=== PATIENT | male | born 1965 | race Caucasian/White ===

== ENCOUNTER → 2022-01-27 | Outpatient (CLI) | payer BC ==
[~2022-01-27] MED LIST: HYDR-3715 PO; KEFL500C17 OR; METF500T13 PO; MULTCAP PO; lantus insulin SQ
== END ==
LOC: M SOG 14:49
PROVIDERS: ATTEND Orthopaedic Surgery Hand Surgery
DX: M79.642 Pain in left hand (principal)

== ENCOUNTER → 2022-07-10 | Outpatient (CLI) | payer OTHER | LOC: M WUC 13:24 | DX: M25.562 Pain in left knee (principal); M25.78 Osteophyte, vertebrae; M51.36 Other intervertebral disc degeneration, lumbar region; M51.37 Other intervertebral disc degeneration, lumbosacral region ==

== ENCOUNTER 2022-10-08 14:43 | Inpatient (IN) | payer BC, OTHER ==
[~2022-10-08] VITALS: Ht 180.3 cm; Wt 79.2 kg
[2022-10-08] MEDS ORDERED: KETOROLAC 30 MG/ML 1ML VIAL IV ONE (15:30)
[2022-10-08] MEDS ORDERED: NS 1,000 ML IV ONE (15:30)
[2022-10-08] MEDS ORDERED: ONDANSETRON 4MG 2ML VIAL IV ONE (15:30)
[2022-10-08 16:22] LABS: BASO % 0.2 % (0.0-1.0); EOS # 0.1 10^3/uL (0.0-0.5); HEMATOCRIT 40.6 % (42.0-52.0); HEMOGLOBIN 13.6 g/dl (13.5-17.5); LYMPH # 1.5 10^3/uL (1.5-5.0); LYMPH % 13.3 % (24.0-44.0); MEAN CORPUSCULAR HEMOGLOBIN 29.2 pg (27.0-33.0); MEAN CORPUSCULAR HGB CONC 33.5 g/dl (32.0-36.5); MEAN CORPUSCULAR VOLUME 87.1 fl (80.0-96.0); MONO # 1.1 10^3/uL (0.0-0.8); MONO % 9.9 % (2.0-8.0); NEUTROPHILS # 8.7 10^3/uL (1.5-8.5); NEUTROPHILS % 75.3 % (36.0-66.0); PLATELET COUNT, AUTOMATED 228 10^3/uL (150-450); RED BLOOD COUNT 4.66 10^6/uL (4.30-6.10); WHITE BLOOD COUNT 11.6 10^3/uL (4.0-10.0)
[2022-10-08 16:44] LABS: APPEARANCE, URINE MANUAL CLEAR (CLEAR); COLOR, URINE MANUAL YELLOW (YELLOW)
[2022-10-08 16:45] LABS: BILIRUBIN, URINE MANUAL NEGATIVE (NEGATIVE); BLOOD URINE MANUAL NEGATIVE (NEGATIVE); GLUCOSE, URINE (UA) MANUAL 4+(1000 MG/DL) mg/dL (NEGATIVE); KETONE, URINE MANUAL 2+ mg/dL (NEGATIVE); LEUKOCYTE ESTERASE, URINE MAN NEGATIVE (NEGATIVE); NITRITE, URINE MANUAL NEGATIVE (NEGATIVE); PROTEIN, URINE MANUAL NEGATIVE (NEGATIVE); UROBILINOGEN, URINE MANUAL NORMAL (NORMAL)
[2022-10-08 17:03] LABS: LIPASE 117 U/L (12-53)
[2022-10-08 17:05] LABS: ALBUMIN 3.7 G/DL (3.2-5.2); ALKALINE PHOSPHATASE 74 U/L (46-116); ALT/SGPT 12 U/L (7.0-40); AST/SGOT 14 U/L (<34); BILIRUBIN,DIRECT 0.7 MG/DL (<0.4); BILIRUBIN,TOTAL 2.2 MG/DL (0.3-1.2); BLOOD UREA NITROGEN 9 MG/DL (9-23); CALCIUM LEVEL 8.9 MG/DL (8.5-10.1); CARBON DIOXIDE LEVEL 25 MMOL/L (20-31); CHLORIDE LEVEL 101 MMOL/L (98-107); CREATININE FOR GFR 0.56 MG/DL (0.70-1.30); GLOMERULAR FILTRATION RATE > 60.0 (>56); GLUCOSE, FASTING 86 MG/DL (60-100); POTASSIUM SERUM 3.8 MMOL/L (3.5-5.1); SODIUM LEVEL 140 MMOL/L (136-145); TOTAL PROTEIN 6.7 G/DL (5.7-8.2)
[2022-10-08] MEDS: INSULIN LISPRO (NovoLOG) PER UNIT SC SCH (18:00)
[2022-10-08] MEDS ORDERED: metroNIDAZOLE 500 MG in IV 1 EA IV ONE (18:05)
[2022-10-08] MEDS ORDERED: cefTRIAXone SOD 1 GM in D5W MINI-BAG PLUS 50 ML IV ONE (18:05)
[2022-10-08] MEDS ORDERED: PIPERACILLIN/TAZOBACTAM SOD 4.5 GM in D5W MINI-BAG PLUS 50 ML IV ONE (18:20)
[2022-10-08] MEDS: NS 1,000 ML IV SCH ×2 (18:35→23:44)
[2022-10-08] MEDS ORDERED: GLUCAGON INJ 1MG VIAL SC PRN (18:35)
[2022-10-08] MEDS ORDERED: GLUCOSE 4GM CHEW TABLET PO PRN (18:35)
[2022-10-08] MEDS ORDERED: KETOROLAC 30 MG/ML 1ML VIAL IV PRN (18:35)
[2022-10-08] MEDS ORDERED: DEXTROSE 50% 50ML SYRINGE IV PRN (18:35)
[2022-10-08] MEDS ORDERED: MORPHINE 2 MG/ML 1ML VIAL IV PRN (18:35)
[2022-10-08] MEDS ORDERED: CINN500C2 PO (19:52)
[2022-10-08] MEDS ORDERED: AMLO1TAB24 PO (19:52)
[2022-10-08] MEDS ORDERED: JARD1TAB PO (19:52)
[2022-10-08] MEDS ORDERED: IRON65TA2 PO (19:52)
[2022-10-08] MEDS ORDERED: METF10004 PO (19:52)
[2022-10-08] MEDS ORDERED: B-COTAB10 PO (19:52)
[2022-10-08] MEDS ORDERED: VITMTA PO (19:52)
[2022-10-08] MEDS ORDERED: PIOG1TAB37 PO (19:52)
[2022-10-08] MEDS ORDERED: TURM500C PO (19:52)
[2022-10-08] MEDS ORDERED: GNP99TAB3 PO (19:52)
[2022-10-08] MEDS ORDERED: C 50TAB PO (19:52)
[2022-10-08] MEDS ORDERED: D-40TAB2 PO (19:52)
[2022-10-08] MEDS ORDERED: HYDR12.55 PO (19:52)
[2022-10-08] MEDS ORDERED: HOME MED LIST COMPLETE! XX SCH (19:55)
[2022-10-08] MEDS ORDERED: ASCORBIC ACID 500 MG TAB PO SCH (21:00)
[2022-10-08] MEDS ORDERED: FERROUS SULFATE 325MG TAB PO SCH (21:00)
[2022-10-08 23:45] VITALS: BP 126/73
[2022-10-09] VITALS (9 sets, daily range): BP systolic 101–142; BP diastolic 58–82
[2022-10-09] MEDS: D5W/0.9% SODIUM CHLORIDE 1,000 ML IV SCH ×2 (00:38→12:56)
[2022-10-09] MEDS: PIPERACILLIN/TAZOBACTAM SOD 3.375 GM in D5W MINI-BAG PLUS 50 ML IV SCH ×4 (00:38→18:18)
[2022-10-09] MEDS: INSULIN LISPRO (NovoLOG) PER UNIT SC SCH ×4 (05:59→18:18)
[2022-10-09 06:31] LABS: MAGNESIUM LEVEL 1.8 MG/DL (1.8-2.4)
[2022-10-09 06:35] LABS: HEMATOCRIT 34.5 % (42.0-52.0); HEMOGLOBIN 11.7 g/dl (13.5-17.5); MEAN CORPUSCULAR HEMOGLOBIN 29.8 pg (27.0-33.0); MEAN CORPUSCULAR HGB CONC 33.9 g/dl (32.0-36.5); MEAN CORPUSCULAR VOLUME 87.8 fl (80.0-96.0); PLATELET COUNT, AUTOMATED 204 10^3/uL (150-450); RED BLOOD COUNT 3.93 10^6/uL (4.30-6.10); WHITE BLOOD COUNT 6.9 10^3/uL (4.0-10.0)
[2022-10-09 06:41] LABS: ALKALINE PHOSPHATASE 62 U/L (46-116); ALT/SGPT 10 U/L (7.0-40); AST/SGOT 10 U/L (<34); BILIRUBIN,TOTAL 1.7 MG/DL (0.3-1.2); BLOOD UREA NITROGEN 13 MG/DL (9-23); CARBON DIOXIDE LEVEL 24 MMOL/L (20-31); CHLORIDE LEVEL 103 MMOL/L (98-107); CREATININE FOR GFR 0.73 MG/DL (0.70-1.30); GLOMERULAR FILTRATION RATE > 60.0 (>56); GLUCOSE, FASTING 83 MG/DL (60-100); POTASSIUM SERUM 3.6 MMOL/L (3.5-5.1); SODIUM LEVEL 140 MMOL/L (136-145); TOTAL PROTEIN 5.6 G/DL (5.7-8.2)
[2022-10-09 06:59] LABS: INR 1.19; PROTHROMBIN TIME 15.4 SECONDS (12.5-14.5)
[2022-10-09] MEDS ORDERED: MIDAZOLAM INJ 2MG/2ML VIAL (J2250 PER 1MG) As Ordered ONE (07:17)
[2022-10-09] MEDS ORDERED: KETOROLAC 60MG 2ML VIAL As Ordered ONE (07:17)
[2022-10-09] MEDS ORDERED: ONDANSETRON 4MG 2ML VIAL As Ordered ONE (07:17)
[2022-10-09] MEDS ORDERED: LIDOCAINE 2% 100MG/5ML SDV (FOR ANES.) As Ordered ONE (07:17)
[2022-10-09] MEDS ORDERED: fentaNYL 250 MCG/5 ML INJECTION As Ordered ONE (07:17)
[2022-10-09] MEDS ORDERED: ROCURONIUM BROMIDE 50MG/5ML VIAL As Ordered ONE ×2 (07:18→09:05)
[2022-10-09] MEDS ORDERED: propofoL 200 MG/20 ML VIAL As Ordered ONE (07:18)
[2022-10-09] MEDS ORDERED: ACETAMINOPHEN 1000MG 100ML IV BAG As Ordered ONE (07:18)
[2022-10-09] MEDS ORDERED: BUPIVACAINE/EPIN 0.25% 30ML VIAL As Ordered ONE (07:30)
[2022-10-09] MEDS ORDERED: KETAMINE HCL 200MG/20ML VIAL As Ordered ONE (08:09)
[2022-10-09] MEDS ORDERED: ZOSYN 3.375GM VIAL As Ordered ONE (08:13)
[2022-10-09] MEDS: amLODIPine 5 MG TAB PO SCH (08:14)
[2022-10-09] MEDS ORDERED: ePHEDrine SULFATE 25 MG/5 ML(5MG/ML) SYRINGE As Ordered ONE (08:33)
[2022-10-09] MEDS ORDERED: GLYCOPYRROLATE INJ 0.2 MG/ML 2 ML VIAL As Ordered ONE (08:34)
[2022-10-09] MEDS ORDERED: ESMOLOL INJ 100MG/10ML VIAL As Ordered ONE (08:49)
[2022-10-09] MEDS ORDERED: SUGAMMADEX SODIUM 500 MG/5 ML VIAL (BRIDION) As Ordered ONE (08:51)
[2022-10-09] MEDS ORDERED: VITAMIN D (CHOLECALCIFEROL) 400 INTERNATIONAL UNITS TAB PO SCH (09:00)
[2022-10-09] MEDS ORDERED: MULTIVITAMINS/MINERALS THERAP 1 TAB PO SCH (09:00)
[2022-10-09] MEDS ORDERED: hydroCHLOROthiazide 12.5 MG CAPSULE PO SCH (09:00)
[2022-10-09] MEDS ORDERED: LR 1,000 ML IV SCH (10:40)
[2022-10-09] MEDS ORDERED: ONDANSETRON 4MG 2ML VIAL IV PRN (10:40)
[2022-10-09] MEDS: oxyCODONE 5MG TAB PO PRN ×2 (11:02→11:40)
[2022-10-09] MEDS: ONDANSETRON 4MG 2ML VIAL IV PRN ×2 (11:03→17:31)
[2022-10-09] MEDS: HYDROMORPHONE HCL 0.5 MG/ 0.5 ML SYRINGE (J1170 PER 1) IV PRN ×4 (11:03→11:19)
[2022-10-09] MEDS: KETOROLAC 30 MG/ML 1ML VIAL IV SCH ×2 (11:16→17:31)
[2022-10-09] MEDS ORDERED: INSULIN LISPRO (NovoLOG) PER UNIT SC SCH (21:00)
[2022-10-10] MEDS: PIPERACILLIN/TAZOBACTAM SOD 3.375 GM in D5W MINI-BAG PLUS 50 ML IV SCH ×2 (00:32→06:06)
[2022-10-10] MEDS: KETOROLAC 30 MG/ML 1ML VIAL IV SCH ×2 (00:33→06:06)
[2022-10-10 01:00] VITALS: BP 116/68
[2022-10-10] MEDS: D5W/0.9% SODIUM CHLORIDE 1,000 ML IV SCH (02:39)
[2022-10-10 05:00] VITALS: BP 112/68
[2022-10-10 06:14] LABS: BASO % 0.1 % (0.0-1.0); HEMATOCRIT 34.6 % (42.0-52.0); HEMOGLOBIN 11.9 g/dl (13.5-17.5); LYMPH % 9.3 % (24.0-44.0); MEAN CORPUSCULAR HGB CONC 34.4 g/dl (32.0-36.5); MEAN CORPUSCULAR VOLUME 87.2 fl (80.0-96.0); MONO # 0.7 10^3/uL (0.0-0.8); MONO % 6.9 % (2.0-8.0); NEUTROPHILS # 8.7 10^3/uL (1.5-8.5); NEUTROPHILS % 83.2 % (36.0-66.0); PLATELET COUNT, AUTOMATED 221 10^3/uL (150-450); RED BLOOD COUNT 3.97 10^6/uL (4.30-6.10); WHITE BLOOD COUNT 10.4 10^3/uL (4.0-10.0)
[2022-10-10 06:53] LABS: BLOOD UREA NITROGEN 17 MG/DL (9-23); CALCIUM LEVEL 8.3 MG/DL (8.5-10.1); CARBON DIOXIDE LEVEL 19 MMOL/L (20-31); CHLORIDE LEVEL 104 MMOL/L (98-107); CREATININE FOR GFR 0.66 MG/DL (0.70-1.30); GLOMERULAR FILTRATION RATE > 60.0 (>56); GLUCOSE, FASTING 162 MG/DL (60-100); POTASSIUM SERUM 4.1 MMOL/L (3.5-5.1); SODIUM LEVEL 139 MMOL/L (136-145)
[2022-10-10] MEDS ORDERED: INSULIN LISPRO (NovoLOG) PER UNIT SC SCH (07:30)
[2022-10-10 08:13] VITALS: BP 141/79
[2022-10-10] MEDS: amLODIPine 5 MG TAB PO SCH (08:13)
[2022-10-10] MEDS ORDERED: OXYC-517 PO (08:17)
[2022-10-10] MEDS ORDERED: AMOX875T2 PO (08:17)
[2022-10-10] MEDS ORDERED: ACET-897 PO (08:17)
[2022-10-10 10:00] VITALS: BP 138/76
== END 2022-10-10 11:22 | disposition home or self-care (01) | DRG 263 ==
LOC: M ED 14:43 → M ED INP 18:32 → ENRESERV 20:28 → M MSPAV 23:38
PROVIDERS: ADMIT Family Medicine; ATTEND Internal Medicine Nephrology
PROC: 8E0W4CZ Robotic Assisted Procedure of Trunk Region, Percutaneous Endoscopic Approach (ICD-10-PCS; 2022-10-09)
PROC: 0FT44ZZ Resection of Gallbladder, Percutaneous Endoscopic Approach (ICD-10-PCS; principal; 2022-10-09 09:00)
DX: K81.0 Acute cholecystitis (principal); E11.319 Type 2 diabetes mellitus with unspecified diabetic retinopathy without macular edema; I10 Essential (primary) hypertension; Z98.84 Bariatric surgery status; Z79.2 Long term (current) use of antibiotics; Z79.4 Long term (current) use of insulin; Z87.891 Personal history of nicotine dependence; D72.829 Elevated white blood cell count, unspecified; R01.1 Cardiac murmur, unspecified; Z86.718 Personal history of other venous thrombosis and embolism; I09.9 Rheumatic heart disease, unspecified

== ENCOUNTER 2023-04-02 08:44 | Day surgery (SDC) | payer BC, OTHER ==
[~2023-04-02] VITALS: Ht 180.3 cm; Wt 77.5 kg
[~2023-04-02 08:44] MED LIST changes: +ACET-897 PO; +AMLO1TAB24 PO; +AMOX875T2 PO; +B-COTAB10 PO; +C 50TAB PO; +CINN500C2 PO; +D-40TAB2 PO; +GNP99TAB3 PO; +HYDR12.55 PO; +IRON65TA2 PO; +JARD1TAB PO; +JARD1TAB3 PO; +METF10004 PO; +OXYC-517 PO; +PIOG1TAB37 PO; +TURM500C PO; +VITMTA PO
[2023-04-02] MEDS ORDERED: LR 1,000 ML IV SCH ×2 (09:10→11:50)
[2023-04-02] MEDS ORDERED: propofoL 200 MG/20 ML VIAL As Ordered ONE ×2 (09:34→10:49)
[2023-04-02] MEDS ORDERED: LIDOCAINE 2% 100MG/5ML SDV (FOR ANES.) As Ordered ONE (09:35)
[2023-04-02] MEDS ORDERED: ONDANSETRON 4MG 2ML VIAL As Ordered ONE (09:38)
[2023-04-02] MEDS ORDERED: MIDAZOLAM INJ 2MG/2ML VIAL As Ordered ONE (09:38)
[2023-04-02] MEDS ORDERED: ACETAMINOPHEN 1000MG 100ML IV BAG As Ordered ONE (09:39)
[2023-04-02] MEDS ORDERED: BUPIVACAINE HCL 0.25% 30ML VIAL As Ordered ONE (09:55)
[2023-04-02] MEDS ORDERED: ceFAZolin SOD 2 GM in IV 1 EA IV ONE (10:10)
[2023-04-02] MEDS ORDERED: KETOROLAC 60MG 2ML VIAL As Ordered ONE (10:21)
[2023-04-02] MEDS ORDERED: PHENYLephrine 500MCG 5ML (100MCG/ML) SYRINGE As Ordered ONE (10:31)
[2023-04-02] MEDS ORDERED: ceFAZolin 2 GM/D5W 50 ML IV BAG As Ordered ONE (10:31)
[2023-04-02] MEDS ORDERED: METOCLOPRAMIDE INJ 10MG/2ML VIAL As Ordered ONE (11:11)
[2023-04-02] MEDS ORDERED: ONDANSETRON 4MG 2ML VIAL IV PRN (11:50)
[2023-04-02] MEDS ORDERED: PERC5TAB12 PO (11:54)
[2023-04-02] MEDS: oxyCODONE 5MG TAB PO PRN ×2 (12:00→12:30)
[2023-04-02 13:00] VITALS: BP 153/85; TEMP 98.3; O2SAT 97
== END 2023-04-02 13:33 | disposition home or self-care (01) ==
LOC: M SDC 08:44
PROVIDERS: ATTEND Orthopaedic Surgery Hand Surgery
DX: M72.0 Palmar fascial fibromatosis [Dupuytren] (principal); E11.9 Type 2 diabetes mellitus without complications; Z98.84 Bariatric surgery status; I10 Essential (primary) hypertension; Z87.891 Personal history of nicotine dependence; Z88.5 Allergy status to narcotic agent; Z88.4 Allergy status to anesthetic agent; Z88.8 Allergy status to other drugs, medicaments and biological substances; Z79.899 Other long term (current) drug therapy; Z79.84 Long term (current) use of oral hypoglycemic drugs
CPT/HCPCS: 26045; 26123; 88304; J0131; J0690; J1100; J1885; J2250; J2370; J2405; J2765

== ENCOUNTER 2024-01-14 12:15 | Day surgery (SDC) | payer OTHER ==
[~2024-01-14] VITALS: Ht 180.3 cm; Wt 78.1 kg
[~2024-01-14 12:15] MED LIST changes: +CHOL4PKT PO; +PERC5TAB12 PO; +SUPETAB44 PO; +THERTAB52 PO
[2024-01-14] MEDS: NS 1,000 ML IV ONE (12:36)
[2024-01-14 14:54] VITALS: BP 119/72; TEMP 96.1; O2SAT 98
== END 2024-01-14 14:57 | disposition home or self-care (01) ==
LOC: M OPP 12:15
PROVIDERS: ATTEND Internal Medicine Gastroenterology
DX: K57.30 Diverticulosis of large intestine without perforation or abscess without bleeding (principal); K64.4 Residual hemorrhoidal skin tags; K64.8 Other hemorrhoids; R19.5 Other fecal abnormalities; E11.9 Type 2 diabetes mellitus without complications; Z98.84 Bariatric surgery status; Z79.84 Long term (current) use of oral hypoglycemic drugs; Z79.899 Other long term (current) drug therapy; Z88.5 Allergy status to narcotic agent; Z88.8 Allergy status to other drugs, medicaments and biological substances

== ENCOUNTER → 2024-04-21 | Outpatient (CLI) | payer OTHER | LOC: M WUC 14:35 | PROVIDERS: ATTEND Nurse Practitioner Family | DX: R07.82 Intercostal pain (principal) ==

== ENCOUNTER → 2024-05-29 | Outpatient (CLI) | payer OTHER | LOC: M RAD 08:41 | PROVIDERS: ATTEND Internal Medicine Pulmonary Disease | DX: R91.8 Other nonspecific abnormal finding of lung field (principal); I25.89 Other forms of chronic ischemic heart disease ==

== ENCOUNTER → 2024-05-29 | Outpatient (CLI) | payer OTHER | LOC: M CARPUL 08:42 | PROVIDERS: ATTEND Internal Medicine Pulmonary Disease | DX: R06.02 Shortness of breath (principal); I35.0 Nonrheumatic aortic (valve) stenosis ==

== ENCOUNTER → 2025-08-03 | Outpatient (CLI) | payer OTHER | LOC: M RAD 06:53 | PROVIDERS: ATTEND Internal Medicine Pulmonary Disease | DX: R91.8 Other nonspecific abnormal finding of lung field (principal); J47.9 Bronchiectasis, uncomplicated ==